=== PATIENT | female | born 1975 | race African-American/Black ===

== ENCOUNTER 2024-08-27 17:14 | Emergency (ER) | payer SELFPAY ==
[~2024-08-27] VITALS: Ht 170.2 cm; Wt 59.0 kg
[2024-08-27] MEDS: METHYLPREDNISOLONE SOD SUCC 125MG/2ML (ACT-O-VIAL) IV STA (17:39)
[2024-08-27 17:47] VITALS: PULSE 84; RESP 20
[2024-08-27] MEDS: IPRATROPIUM BROMIDE (0.02%) 0.5MG/2.5ML NEB HHN STA (17:47)
[2024-08-27] MEDS: ALBUTEROL (0.083%) 2.5MG/3ML NEB HHN STA (17:47)
[2024-08-27] MEDS ORDERED: P50 MT (19:48)
[2024-08-27] MEDS ORDERED: ALBU90AE INH (19:49)
[2024-08-27 20:32] VITALS: PULSE 70; RESP 18; O2SAT 98
[2024-08-27] MEDS: IPRATROPIUM/ALBUTEROL 0.5-3(2.5)MG/3ML NEB HHN ONE (20:32)
[2024-08-27 20:45] VITALS: BP 138/89; PULSE 75; RESP 19; TEMP 36.66960; O2SAT 99
== END 2024-08-27 20:53 | disposition home or self-care (01) ==
LOC: ER 17:14
DX: R06.02 Shortness of breath (principal); J45.909 Unspecified asthma, uncomplicated
CPT/HCPCS: 71045; 94640; 96374; 99283; J2919; Z7610 ×3